=== PATIENT | female | born 1995 | race African-American/Black ===

== ENCOUNTER 2017-02-13 04:14 | Emergency (ER) | payer OTHER ==
[~2017-02-13] VITALS: Ht 154.9 cm; Wt 77.0 kg
[2017-02-13] MEDS ORDERED: BACITRACIN ZINC OINT UDPKT TOP ONE (07:00)
[2017-02-13 07:10] VITALS: BP 115/75
[2017-02-13] MEDS ORDERED: ACETAMINOPHEN 500MG TABLET PO ONE (07:15)
== END 2017-02-13 08:03 | disposition home or self-care (01) ==
LOC: ER 04:14
DX: S00.93XA Contusion of unspecified part of head, initial encounter (principal); S00.81XA Abrasion of other part of head, initial encounter; F12.10 Cannabis abuse, uncomplicated; Y00.XXXA Assault by blunt object, initial encounter; Y93.89 Activity, other specified; Y92.89 Other specified places as the place of occurrence of the external cause; Y99.8 Other external cause status
CPT/HCPCS: 99283